=== PATIENT | male | born 1980 | race African-American/Black ===

== ENCOUNTER 2017-01-21 23:13 | Emergency (ER) | payer SELFPAY ==
[~2017-01-21] VITALS: Ht 162.6 cm; Wt 85.1 kg
[2017-01-22 00:01] LABS: HEMATOCRIT 43.5 % (38.0-50.0); MCH 25.4 PG (29.0-34.0); MCHC 32.6 G/DL (30.0-36.0); PLATELET COUNT 293 K/uL (156-360); RBC DIS.WIDTH-SD 39.4 % (39-53); RED BLOOD COUNT 5.58 M/uL (4.00-5.50); WHITE BLOOD COUNT 15.1 K/uL (4.1-10.2)
[2017-01-22 00:12] LABS: CHLORIDE 101 mEq/L (99-109); POTASSIUM 4.1 mEq/L (3.7-5.4); SODIUM 139 mEq/L (136-147)
[2017-01-22 00:15] LABS: GLUCOSE 101 mg/dL (70-99)
[2017-01-22 00:16] LABS: ANION GAP 12 MEQ/L (2-14)
[2017-01-22 00:17] LABS: TOTAL BILIRUBIN 0.3 mg/dL (0.0-1.0)
[2017-01-22 00:18] LABS: ALKALINE PHOSPHATASE 76 IU/L (3-129); GFR ESTIMATE (CALCULATED) > 59 mL/min/
[2017-01-22 00:19] LABS: UREA NITROGEN (BUN) 17 mg/dL (9-23)
[2017-01-22 00:22] LABS: LIPASE 17 U/L (1.0-51.0)
[2017-01-22 00:23] LABS: TROP-I INTERPRETATION NEGATIVE; TROPONIN-I < 0.01 ng/mL (0.0-0.30)
[2017-01-22 00:56] LABS: ADD MIUA? NO; BILIRUBIN NEGATIVE; BLOOD NEGATIVE; COLOR STRAW ((YELLOW)); GLUCOSE (STRIP) NEGATIVE; KETONES NEGATIVE; LEUKOCYTES NEGATIVE; NITRITE NEGATIVE; PROTEIN (STRIP) NEGATIVE; SPECIFIC GRAVITY 1.013 (1.000-1.030); UCUL ADDED? NO; UROBILINOGEN 0.2 MG/DL (0.2-1.0)
[2017-01-22 02:04] VITALS: BP 150/106
== END 2017-01-22 02:05 | disposition home or self-care (01) ==
LOC: EME 23:13
PROVIDERS: Emergency Medicine
DX: R51 Headache (principal); I10 Essential (primary) hypertension; R42 Dizziness and giddiness; H53.8 Other visual disturbances; H53.149 Visual discomfort, unspecified; F17.200 Nicotine dependence, unspecified, uncomplicated
CPT/HCPCS: 70450; 80053; 81003; 83690; 84484; 85027; 93005